=== PATIENT | female | born 1940 ===

== ENCOUNTER 2019-01-20 10:11 | Outpatient (CLI) | payer MEDICARE ==
[2019-01-20 11:14] LABS: Blood Urea Nitrogen 16 mg/dL (7-17)
--- NOTE | 2019-01-23 08:02 | Cat Scan Report ---
CTA NECK: HISTORY: Occlusion and stenosis of bilateral carotid arteries. TECHNIQUE: Helical CT following IV contrast. Sagittal and coronal reformatted images. No three-dimensional reconstructions are provided. Stenosis was calculated using NASCET criteria with the distal ICA being standard diameter. FINDINGS: Moderate partially calcified plaques are identified throughout the aortic arch. No aneurysm or dissection. Bovine arch. The innominate artery is widely patent. There are moderate irregular calcifications at the origin of the left common carotid artery with stenosis estimated at 50%. The proximal subclavian arteries demonstrate less than 20% stenosis. Within the right carotid system: There are moderate to severe irregular, calcified plaques throughout the right carotid bulb. Tightest measurable diameter of the carotid bulb measures 1.2 mm which correlates with 73-76% stenosis. There is mild intimal thickening throughout the right ICA but less than 20% stenosis. Within the left carotid system: There are moderate irregular, calcified plaques throughout the left carotid bulb. Tightest measurable diameter of the left carotid bulb measures 3.0 mm which correlates with less than 50% stenosis. There is mild intimal thickening throughout the left ICA but less than 20% stenosis. There are mild atherosclerotic calcifications at the origins of the cervical vertebral arteries, right greater than left. Mild stenosis at the origin of the right vertebral artery is estimated at 50%. 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 Stenosis in the right carotid bulb is estimated at 73-76%. Stenosis in the left carotid bulb is estimated at 50%. 50% narrowing at the origins of the left common carotid artery and right vertebral artery.
== END 2019-01-20 10:12 | disposition home or self-care (01) ==
LOC: CT 10:11
PROVIDERS: ATTEND Surgery Vascular Surgery
DX: I65.23 Occlusion and stenosis of bilateral carotid arteries (principal); I10 Essential (primary) hypertension; E78.9 Disorder of lipoprotein metabolism, unspecified; I63.89 Other cerebral infarction
CPT/HCPCS: 36415; 70498; 82565; 84520; Q9967